=== PATIENT | male | born 1985 | race Caucasian/White ===

== ENCOUNTER 2023-11-24 11:26 | Outpatient (CLI) | payer OTHER, SELFPAY ==
--- NOTE | 2023-11-24 12:03 | W.ANESCHARGE ---
Anesthesia Charges Start Date/Time Anesthesia Start Date: 11/24/23 Anesthesia Start Time: 12:37 Stop Date/Time Anesthesia Stop Date: 11/24/23 Anesthesia Stop Time: 13:06
--- NOTE | 2023-11-24 13:10 | W.ANESCHARGE ---
Anesthesia Charges Start Date/Time Anesthesia Start Date: 11/24/23 Anesthesia Start Time: 12:37 Stop Date/Time Anesthesia Stop Date: 11/24/23 Anesthesia Stop Time: 13:06
== END 2023-11-24 11:27 | disposition home or self-care (01) ==
LOC: OP CLINIC 11:27
PROVIDERS: PCP Student in an Organized Health Care Education/Training Program; Visit Provider Internal Medicine Gastroenterology
DX: Z12.11 Encounter for screening for malignant neoplasm of colon (principal); K63.5 Polyp of colon; Z80.0 Family history of malignant neoplasm of digestive organs
CPT/HCPCS: 00811; 45385; 88305; J2704

== ENCOUNTER 2023-12-22 14:00 | Outpatient (RCR) | payer OTHER, SELFPAY | END 2024-04-20 23:59 | disposition home or self-care (01) | PROVIDERS: PCP Family Medicine; Visit Provider Student in an Organized Health Care Education/Training Program | DX: M54.2 Cervicalgia (principal); G89.29 Other chronic pain; Z51.89 Encounter for other specified aftercare | CPT/HCPCS: 97110; 97140; 97162 ==

== ENCOUNTER 2024-04-29 11:43 | Emergency (ER) | payer OTHER, SELFPAY ==
[2024-04-29 11:56] VITALS: BP 136/100; PULSE 95; RESP 18; TEMP 36.8; O2SAT 95; BMI 31.0
--- NOTE | 2024-04-29 12:03 | CRLHL7_ITS ---
For Patients: As a result of the Century Cures Act, medical imaging exams and procedure reports are released immediately into your electronic medical record. You may view this report before your referring provider. If you have questions, please contact your health care provider. INDICATION: Right lower extremity pain, swelling and erythema. COMPARISON: None available. TECHNIQUE: Static and compression grayscale and spectral (including color) Doppler ultrasound of the right lower extremity. FINDINGS: Deep veins: Echogenic nonocclusive DVT involving the distal superficial femoral vein. Echogenic expansile occlusive DVT involving the right popliteal vein. Noncompressible DVT involving the imaged posterior tibial and peroneal veins in the leg. Otherwise the right common femoral, deep femoral, proximal and mid superficial femoral and contralateral left common femoral veins are patent and free of clot. Superficial veins: The imaged right great saphenous vein is patent and free of clot. Extravascular findings: No significant incidental findings. IMPRESSION: DVT involving the right distal superficial femoral, popliteal, posterior tibial and peroneal veins as above. Dictated by Hill Shah MD @ 04/29/2024 1:45:50 PM (Electronically Signed)
--- NOTE | 2024-04-29 14:14 | ED_ITS ---
HPI - General Adult General Date Seen: 04/29/24 Chief complaint: Extremity Pain/Injury, Lower Stated complaint: Swollen RT lower leg Time Seen by Provider: 04/29/24 11:48 Source: patient Mode of arrival: ambulatory Limitations: no limitations History of Present Illness HPI narrative: Patient is a 39-year-old male presenting for right lower extremity swelling for the past 2 days. Has noticed some mild erythema throughout the leg and some swelling mostly noted to the right calf. Has no previous history of blood clots but does have a grandfather had a blood clot. Does states he has been work with rheumatology figure out why he has repeat issues with his left elbow pain was just started on prednisone and amlodipine today. Does have scabs throughout his rodriguez be states that is a chronic issue. Does state there is quite a bit of pain noted to the leg. Denies fevers, chills, chest pain, shortness of breath, weakness, lightheadedness, dizziness, abdominal pain. No other concerns noted at this time. Related Data Home Medications ?Medication ?Instructions ?Recorded ?Confirmed amlodipine 5 mg tablet 5 mg PO DAILY 04/29/24 04/29/24 prednisone 5 mg tablet 15 mg PO DAILY 04/29/24 04/29/24 Previous Rx's ?Medication ?Instructions ?Recorded apixaban 5 mg (74 tabs) tablets in 5 mg PO BID #74 ea 04/29/24 a dose pack (EliKohort DVT-PE Treat 30D Start) ketorolac 10 mg tablet 10 mg PO Q6H PRN pain #20 tabs 04/29/24 Allergies Allergy/AdvReac Type Severity Reaction Status Date / Time No Known Drug Allergies Allergy Verified 04/29/24 12:00 Review of Systems Status of ROS: Reports: 10 or more systems reviewed and unremarkable except as noted in History and below Exam Narrative: Exam Narrative: Const: Well-nourished, Well-developed, in mild distress Eyes: PERRL, no conjunctival injection, and symmetrical lids HENT: Atraumatic external nose and ears. Moist mucous membranes. Neck: Symmetric, trachea midline, No thyromegaly. CVS: RRR, No murmurs or gallops. Peripheral pulses 2+ and equal in all extremities RESP: Unlabored respiratory effort. Clear to auscultation bilaterally. GI: Nontender/Nondistended, No rebound or guarding. MSK:Extremities w/o deformity, Normal Active ROM, mild swelling right lower extremity Skin: Warm, Dry. No rashes or lesions. Neuro: Normal Muscle tone, No focal neurological deficits. Psych: Awake, Alert, & Oriented x3. Appropriate mood and affect. Const: Vital Signs, click to edit/add: Vital Signs - 24 hr 04/29/24 11:56 Temperature 98.2 F Pulse Rate [Pulse Oximeter] 95 Respiratory Rate 18 Blood Pressure [Ri ght Upper Arm] 136/100 H Pulse Oximetry 95 Oxygen Delivery Me thod Room Air Course Vital Signs Vital signs: Initial Vital Signs Temperature 98.2 F 04/29/24 11:56 Temperature Source Temporal Artery Scan 04/29/24 11:56 Pulse Rate 95 04/29/24 11:56 Respiratory Rate 18 04/29/24 11:56 Blood Pressure 136/100 H 04/29/24 11:56 Blood Pressure Mean 112 H 04/29/24 11:56 Blood Pressure Position Sitting 04/29/24 11:56 Pulse Oximetry 95 04/29/24 11:56 Oxygen Delivery Method Room Air 04/29/24 11:56 Vital Signs Temperature 98.2 F 04/29/24 11:56 Pulse Rate 95 04/29/24 11:56 Respiratory Rate 18 04/29/24 11:56 Blood Pressure 136/100 H 04/29/24 11:56 Pulse Oximetry 95 04/29/24 11:56 Oxygen Delivery Method Room Air 04/29/24 11:56 Temperature 98.2 F 04/29/24 11:56 Pulse Rate 95 04/29/24 11:56 Respiratory Rate 18 04/29/24 11:56 Blood Pressure 136/100 H 04/29/24 11:56 Pulse Oximetry 95 04/29/24 11:56 Oxygen Delivery Method Room Air 04/29/24 11:56 Medical Decision Making MDM Narrative Medical decision making narrative: Patient is a 39-year-old male presenting for concerned about swelling and pain to his right lower extremity. Will do an ultrasound the for signs of blood clots. He is otherwise doing well at this time no other concerns noted. Ultrasound returned showing clots in the right distal superficial moral, popliteal and posterior tibial and peroneal veins. He like no blood clot seen in the right common from [place], fever tomorrow or proximal and mid superficial more home. He is otherwise doing well no signs of shortness I more chest pain so I do not think CTA of the chest is necessary. Will start him on a blood thinner any does state he has follow-up with his primary care provider ready for his other medical issues. Discharge Plan Discharge Clinical Impression: DVT (deep venous thrombosis) Qualifiers: DVT location: lower extremity Affected thrombotic vein of extremity: unspecified vein of extremity Chronicity: acute Laterality: right Qualified Code(s): I82.401 - Acute embolism and thrombosis of unspecified deep veins of right lower extremity Patient Disposition: Home, Self-Care Condition: Stable Instructions: Deep Vein Thrombosis (ED) Additional Instructions: Follow-up the primary care provider within the next few days. I gave the 30 days of your blood thinner for DVT but he will need a longer course. Return to emergency department for new or worsening symptoms Prescriptions: New ketorolac 10 mg tablet 10 mg PO Q6H PRN (Reason: pain) Qty: 20 0RF Rx Instructions: maximum total duration of 5 days from all oral, intranasal, or parenteral formulations Althea DVT-PE Treat 30D Start 5 mg (74 tabs) tablets,dose pack 5 mg PO BID Qty: 74 0RF Rx Instructions: take 10 mg twice daily for for 7 days then 5 mg twice daily the her after that No Action prednisone 5 mg tablet 15 mg PO DAILY amlodipine 5 mg tablet 5 mg PO DAILY Follow Up/Referrals: JUSTINA VARGAS DO [Primary Care Provider] - Stand Alone Forms: [email or web address] Info Instructions
== END 2024-04-29 14:28 | disposition home or self-care (01) ==
LOC: ED 14:26
PROVIDERS: Emergency Provider Student in an Organized Health Care Education/Training Program; PCP Student in an Organized Health Care Education/Training Program
DX: I82.401 Acute embolism and thrombosis of unspecified deep veins of right lower extremity (principal)
CPT/HCPCS: 93971; 99282; 99283